=== PATIENT | male | born 1965 | race Two or more races ===

== ENCOUNTER → 2024-08-26 09:12 | Outpatient (BNVA) | payer OTHER, SELFPAY | PROVIDERS: Visit Provider Physician Assistant Medical | DX: S67.41XA Crushing injury of right wrist and hand, initial encounter (principal); W31.9XXA Contact with unspecified machinery, initial encounter | CPT/HCPCS: 29125; 73110; 73130; 99204 ==

== ENCOUNTER → 2024-08-28 09:44 | Outpatient (BNVA) | payer OTHER, SELFPAY | PROVIDERS: Visit Provider Physician Assistant Medical | DX: S67.41XA Crushing injury of right wrist and hand, initial encounter (principal); W31.9XXA Contact with unspecified machinery, initial encounter; R60.9 Edema, unspecified; Z98.1 Arthrodesis status | CPT/HCPCS: 99213 ==

== ENCOUNTER → 2024-09-04 14:32 | Outpatient (BNVA) | payer OTHER, SELFPAY | PROVIDERS: Visit Provider Physician Assistant Medical | DX: S67.41XD Crushing injury of right wrist and hand, subsequent encounter (principal); W31.9XXD Contact with unspecified machinery, subsequent encounter; Z02.79 Encounter for issue of other medical certificate | CPT/HCPCS: 99213 ==